=== PATIENT | female | born 1995 | race Caucasian/White ===

== ENCOUNTER 2017-04-18 13:17 | Emergency (ER) | payer OTHER ==
[~2017-04-18] VITALS: Ht 152.4 cm; Wt 91.0 kg
[2017-04-18 13:22] VITALS: BP 124/77
[2017-04-18] MEDS ORDERED: KETOROLAC 30 MG/1 ML IM ONE (13:30)
[2017-04-18] MEDS ORDERED: METHOCARBAMOL 750 MG TABLET PO ONE (13:30)
[2017-04-18] MEDS ORDERED: METHOCARBAMOL 750 MG TABLET ONE (13:40)
[2017-04-18] MEDS ORDERED: KETOROLAC 30 MG/1 ML ONE (13:40)
== END 2017-04-18 15:00 | disposition home or self-care (01) ==
LOC: ED 14:54
DX: S39.012A Strain of muscle, fascia and tendon of lower back, initial encounter (principal); X50.1XXA Overexertion from prolonged static or awkward postures, initial encounter; Y93.89 Activity, other specified; Y99.8 Other external cause status; Y92.89 Other specified places as the place of occurrence of the external cause
CPT/HCPCS: 96372; 99283; J1885

== ENCOUNTER 2017-06-14 14:59 | Emergency (ER) | payer OTHER ==
[~2017-06-14] VITALS: Ht 162.6 cm; Wt 89.5 kg
[2017-06-14 15:38] LABS: HCG UR LOT HCG7030192
[2017-06-14 15:49] LABS: HCG UR OBC PASS
[2017-06-14 16:31] VITALS: BP 128/60
[2017-06-14] MEDS ORDERED: CEFTRIAXONE 250 MG IM ONE (18:00)
[2017-06-14] MEDS ORDERED: AZITHROMYCIN 500 MG TABLET PO ONE (18:00)
[2017-06-14] MEDS ORDERED: CEFTRIAXONE 250 MG ONE (18:09)
[2017-06-14] MEDS ORDERED: AZITHROMYCIN 250 MG TABLET ONE (18:09)
== END 2017-06-14 18:39 | disposition home or self-care (01) ==
LOC: ED 16:41
DX: N89.8 Other specified noninflammatory disorders of vagina (principal); Z87.891 Personal history of nicotine dependence
CPT/HCPCS: 81001; 81025; 87086; 87210; 87491; 87591; 87808; 96372; 99284; J0696

== ENCOUNTER 2017-10-18 14:10 | Emergency (ER) | payer OTHER ==
[~2017-10-18] VITALS: Ht 165.1 cm; Wt 92.9 kg
[2017-10-18 14:13] VITALS: BP 132/84
[2017-10-18] MEDS ORDERED: SODIUM CHLORIDE 0.9% 1,000ML IVBOLUS ONE (14:30)
[2017-10-18] MEDS ORDERED: FAMOTIDINE 20 MG/2 ML IVP ONE (14:30)
[2017-10-18] MEDS ORDERED: SODIUM CHLORIDE FLUSH 10ML SYR IVF ONE (14:30)
[2017-10-18] MEDS ORDERED: ONDANSETRON 2MG/ML, 2ML IVPush ONE (14:30)
[2017-10-18 14:47] LABS: BASOPHILS # (AUTO) 0.03 x10^3/uL (0-0.1); BASOPHILS % (AUTO) 0 % (0-1); EOSINOPHILS % (AUTO) 2 % (1-7); LYMPHOCYTES # (AUTO) 1.88 x10^3/uL (1-3.4); LYMPHOCYTES % (AUTO) 20 % (22-44); MD NO; MEAN CORPUSCULAR HGB CONC 33.7 g/dL (32.4-35.8); MEAN CORPUSCULAR VOLUME 91.9 fL (80-100); MEAN PLATELET VOLUME 8.1 fL (7.4-10.4); MONOCYTES # (AUTO) 0.54 x10^3/uL (0.2-0.8); MONOCYTES % (AUTO) 6 % (2-9); NEUTROPHILS # (AUTO) 7.02 x10^3/uL (1.8-6.8); NEUTROPHILS % (AUTO) 73 % (42-75); PLATELET COUNT 356 x10^3/uL (130-400); RED BLOOD COUNT 4.41 x10^6/uL (3.82-5.3); RED CELL DISTRIBUTION WIDTH 12.5 % (9.6-15.2)
[2017-10-18 14:58] LABS: ALANINE AMINOTRANSFERASE 24 U/L (12-78); ALBUMIN 3.6 g/dL (3.4-5.0); ANION GAP 7 mmol/L (5-15); CALCIUM 8.6 mg/dL (8.5-10.1); CHLORIDE 105 mmol/L (98-107); CREATININE 0.71 mg/dL (0.55-1.02)
[2017-10-18 15:02] LABS: ALKALINE PHOSPHATASE 76 U/L (45-117); BILIRUBIN,TOTAL 0.3 mg/dL (0.2-1.0); TOTAL PROTEIN 7.5 g/dL (6.4-8.2)
== END 2017-10-18 18:19 | disposition left against medical advice (07) ==
LOC: ED 18:13
DX: R10.9 Unspecified abdominal pain (principal)
CPT/HCPCS: 36415; 80053; 83690; 84703; 85025; 99284